=== PATIENT | male | born 1965 | race African-American/Black ===

== ENCOUNTER 2017-01-02 13:20 | Day surgery (SDC) | payer OTHER ==
[~2017-01-02] VITALS: Ht 180.3 cm; Wt 79.0 kg
[2017-01-02 13:59] VITALS: Ht 180.3 cm; Wt 79.0 kg
[2017-01-02] MEDS ORDERED: LOSARTAN PO (14:03)
[2017-01-02] MEDS ORDERED: ASPI-664 PO (14:03)
[2017-01-02] MEDS ORDERED: MIDAZOLAM 1 MG/ML 2 ML INJ ONE (14:59)
[2017-01-02] MEDS ORDERED: FENTAnyl 50 MCG/ML VIAL ONE (14:59)
[2017-01-02] MEDS ORDERED: LIDOCAINE 2% (SDV) 5 ML INJ ONE (15:01)
[2017-01-02 15:10] VITALS: BP 135/80; PULSE 72; RESP 15
--- NOTE | 2017-01-02 15:44 | OPPN ---
Date/Time of Note Date/Time of Note DATE: 01/02/17 TIME: 15:43 Operative Report Preoperative Diagnosis Screening Postoperative Diagnosis Sigmoid polyp was removed using snare and electrocautery Diverticulosis of the colon Internal hemorrhoids Operation/Procedure Performed Colonoscopy and polypectomy Surgeon see signature line case assistant None Anesthesia: MAC Estimated blood loss: none Transfusion Required none Specimen Sigmoid polyp Grafts/Implants none Complications none RAEL JACKSON MD Jan 02, 2017 15:44
[2017-01-02 16:02] VITALS: BP 138/83; PULSE 64; RESP 13
--- NOTE | 2017-01-03 02:23 | GILP ---
DATE OF PROCEDURE: NAME OF PROCEDURES: Colonoscopy and polypectomy. SURGEON: Real Munroe MD PREOPERATIVE DIAGNOSIS: Screening colonoscopy. POSTOPERATIVE DIAGNOSES: 1. Colonoscopy all the way to the cecum. 2. Sigmoid colon polyp was removed using the snare and electrocautery. 3. Diverticulosis of the colon. 4. Internal hemorrhoids. INDICATION FOR THE PROCEDURE: Mr. Gregg Davis is a 51-year-old male patient who was scheduled f or screening colonoscopy. The procedure and possible complications were well explained to the patient. The patient understood and consented to the procedure. DESCRIPTION OF PROCEDURE: Under the influence of anesthesia, the colonoscope was carefully introduc ed in the rectum and under direct vision, it was advanced all the way to the cecum. FINDINGS: The patient had a sigmoid colon polyp and it was removed using the snare and electrocaute ry. He had diverticulosis of the colon. He also had internal hemorrhoids. He tolerated the procedure very well and there was no complication from the procedure. At the end o f the procedure, he was awake with stable vital signs and he was discharged home to the care of his family. IMPRESSION: 1. Colonoscopy all the way to the cecum. 2. Sigmoid colon polyp was removed using the snare and electrocautery. 3. Diverticulosis of the colon. 4. Internal hemorrhoids. PLAN: 1. Await histopathology report. 2. High fiber diet. 3. Next screening colonoscopy in 5 years. Dictated By: REAL LUEVANO/MARIIA Conf#: [id number] DID#: [id number]
== END 2017-01-02 16:20 | disposition home or self-care (01) ==
LOC: GIL 13:20
PROVIDERS: ATTEND Internal Medicine Gastroenterology
DX: Z12.11 Encounter for screening for malignant neoplasm of colon (principal); K57.90 Diverticulosis of intestine, part unspecified, without perforation or abscess without bleeding; K64.8 Other hemorrhoids; F17.200 Nicotine dependence, unspecified, uncomplicated
CPT/HCPCS: 45380; 88305; J2250; J3010; Z7610